=== PATIENT | male | born 1960 | race Caucasian/White ===

== ENCOUNTER 2018-12-10 14:29 | Inpatient (IN) ==
[2018-12-12] MEDS ORDERED: BENZTROPINE 2 MG/2 ML AMP IV PRN (08:35)
[2018-12-12] MEDS ORDERED: diphenhydrAMINE CAP 25 MG CAPSULE PO PRN (08:35)
[2018-12-12] MEDS ORDERED: TEMAZEPAM 7.5 MG CAPSULE PO PRN (08:35)
[2018-12-12] MEDS ORDERED: MYLANTA/LIDO VISC 2:1 300 ML BOTTLE SWISH/SWAL PRN (08:35)
[2018-12-12] MEDS ORDERED: MYLANTA/LIDO VISC 2:1 300 ML BOTTLE SWISH/SPIT PRN (08:35)
[2018-12-12] MEDS ORDERED: ALUMINUM/MAGNES/SIMETH MAX STR 30 ML UDCUP PO PRN (08:35)
[2018-12-12] MEDS ORDERED: chlorproMAZINE 25 MG TABLET PO PRN (08:35)
[2018-12-12] MEDS ORDERED: chlorproMAZINE INJ 50 MG in SODIUM CHLORIDE 0.9% 100 ML IV PRN (08:35)
[2018-12-12] MEDS ORDERED: guaiFENesin 200 MG/10 ML UDCUP PO PRN (08:35)
[2018-12-12] MEDS ORDERED: LOPERAMIDE 2 MG CAPSULE PO PRN ×2 (08:35)
[2018-12-12] MEDS ORDERED: chlorproMAZINE INJ 25 MG in SODIUM CHLORIDE 0.9% 100 ML IV PRN (08:35)
[2018-12-12] MEDS ORDERED: MAGNESIUM HYDROXIDE SUSP 30 ML UDCUP PO PRN (08:35)
[2018-12-12] MEDS ORDERED: LACTULOSE 20 GM/30 ML UDCUP PO PRN (08:35)
[2018-12-12] MEDS ORDERED: ALPRAZolam 0.25 MG TABLET PO PRN (08:35)
[2018-12-12] MEDS ORDERED: traMADol 50 MG TABLET PO PRN (08:35)
[2018-12-12] MEDS ORDERED: ACETAMINOPHEN 325 MG TABLET PO PRN (08:35)
[2018-12-12 08:56] LABS: Basophils # 0.1 10*3/uL (0.0-0.2); Basophils % 1.3 % (0.0-0.8); Eosinophils % 0.7 % (0.00-10.9); Hematocrit 34.3 VOL% (42.0-52.0); Hemoglobin 10.7 GM/DL (14.0-18.0); Immature Granulocytes % 3.8 %; Immature Granulocytes Absolute 0.17 #; Lymphocytes # 0.7 10*3/uL (1.4-4.0); Lymphocytes % 15.4 % (21.2-54.2); Mean Corpuscular HGB Conc 31.2 GM/DL (32-36); Mean Platelet Volume 9.2 FL (9.6-12.0); Monocytes % 14.5 % (1.7-12.7); Neutrophils % 64.3 % (38.7-73.9); Platelet Count 171 T/CUMM (130-400); Red Blood Count 3.69 MC/CUMM (3.8-5.5); Red Cell Distribution Width 17.5 % (9.3-17.3); White Blood Count 4.5 T/CUMM (4-12)
[2018-12-12 09:30] LABS: Alanine Aminotransferase 18 U/L (16-61); Albumin 3.3 G/DL (3.4-5.0); Alkaline Phosphatase 227 U/L (45-117); Aspartate Amino Transferase 19 U/L (0-37); Bilirubin,Total < 0.39 MG/DL (0.2-1.0); Blood Urea Nitrogen 12 MG/DL (7-18); Calcium 8.6 MG/DL (8.5-10.1); Estimated Glom Filtration Rate 109 ML/MIN; Glucose 112 MG/DL (74-106); Osmolality,Calculated 275.7 MOS/KG (273-304)
[2018-12-12] MEDS ORDERED: DILTIAZEM 60 MG TABLET PO SCH (09:30)
[2018-12-12 09:44] LABS: Eosinophils 2 % (0-10); Hypochromasia 1+; Lymphocytes 19 % (20-55); Platelet Estimate Adequate; Segmented Neutrophils 69 % (50-85); Total Cells Counted 100
[2018-12-12] MEDS ORDERED: DIVALPROEX ER 250 MG TABLET PO SCH (10:00)
[2018-12-12] MEDS ORDERED: DULoxetine 30 MG CAPSULE PO SCH (10:00)
[2018-12-12] MEDS: ATORVASTATIN 20 MG TABLET PO SCH (10:50)
[2018-12-12] MEDS: FLUTICASONE 50 MCG NASAL SPRAY 16 GM BOTTLE BOTH NARES SCH (11:25)
[2018-12-12] MEDS ORDERED: LORazepam 0.5 MG TABLET PO PRN (11:28)
[2018-12-12] MEDS: ONDANSETRON 4 MG/2 ML VIAL IV PRN ×2 (11:29→18:01)
[2018-12-12] MEDS ORDERED: DEXAMETHASONE 10 MG/1 ML VIAL IV ONE (11:48)
[2018-12-12] MEDS ORDERED: PALONOSETRON 0.25 MG/5 ML VIAL IV ONE (11:48)
[2018-12-12] MEDS: ALLOPURINOL 300 MG TABLET PO SCH (13:09)
[2018-12-12] MEDS: FOLIC ACID 0.4 MG TABLET PO SCH (13:10)
[2018-12-12] MEDS: DIVALPROEX 250 MG TABLET PO SCH ×2 (13:15→20:49)
[2018-12-12] MEDS: DULoxetine 30 MG CAPSULE PO SCH (13:15)
[2018-12-12] MEDS: DILTIAZEM 60 MG TABLET PO SCH (13:15)
[2018-12-12] MEDS ORDERED: SODIUM CHLORIDE 0.9% 500 ML IV ONE (15:00)
[2018-12-12] MEDS ORDERED: METHOTREXATE IV ONE ×2 (15:00→16:00)
[2018-12-12] MEDS ORDERED: SODIUM CHLORIDE 0.9% IV ONE (16:00)
[2018-12-12] MEDS: SODIUM CHLORIDE 0.45% 1,000 ML IV SCH (16:03)
[2018-12-12] MEDS ORDERED: GABAPENTIN 400 MG CAPSULE PO SCH ×2 (17:00→21:00)
[2018-12-12] MEDS: GABAPENTIN 400 MG CAPSULE PO SCH ×2 (18:04→20:49)
[2018-12-12] MEDS: PROMETHAZINE INJ 25 MG in SODIUM CHLORIDE 0.9% 50 ML IV PRN (19:25)
[2018-12-12 19:38] LABS: Apearance,Urine CLEAR (Clear); Bilirubin,Urine Negative (Negative); Blood, Urine Negative (Negative); Glucose,Urine (UA) Negative (Negative); Ketones,Urine Negative (Negative); Mucus,Urine Occasional /LPF (Occasional); Nitrite,Urine Negative (Negative); Protein,Urine Negative; RBC,Urine 1 /HPF (0-4); Urine Color Straw (Yellow); Urine Specific Gravity 1.008 (1.001-1.035); Urine Urobilinogen < 2.0 EU/DL (0.2-1.0)
[2018-12-12] MEDS: traZODone 50 MG TABLET PO SCH (20:49)
[2018-12-12] MEDS: MIRTAZAPINE 30 MG TABLET PO SCH (20:50)
[2018-12-12] MEDS ORDERED: MIRTAZAPINE 30 MG TABLET PO SCH (21:00)
[2018-12-12] MEDS ORDERED: traZODone 50 MG TABLET PO SCH (21:00)
[2018-12-13] MEDS: SODIUM CHLORIDE 0.45% 1,000 ML IV SCH ×3 (01:55→23:33)
[2018-12-13] MEDS: ONDANSETRON 4 MG/2 ML VIAL IV PRN ×2 (02:15→12:05)
[2018-12-13] MEDS ORDERED: LEVOTHYROXINE 25 MCG TABLET PO SCH (06:30)
[2018-12-13] MEDS: PROMETHAZINE INJ 25 MG in SODIUM CHLORIDE 0.9% 50 ML IV PRN ×4 (08:34→21:55)
[2018-12-13] MEDS: ALLOPURINOL 300 MG TABLET PO SCH (08:42)
[2018-12-13] MEDS: ATORVASTATIN 20 MG TABLET PO SCH (08:42)
[2018-12-13] MEDS: GABAPENTIN 400 MG CAPSULE PO SCH ×3 (08:42→21:54)
[2018-12-13] MEDS: DILTIAZEM 60 MG TABLET PO SCH (08:42)
[2018-12-13] MEDS: DULoxetine 30 MG CAPSULE PO SCH (08:42)
[2018-12-13] MEDS: FOLIC ACID 0.4 MG TABLET PO SCH (08:42)
[2018-12-13] MEDS: DIVALPROEX 250 MG TABLET PO SCH ×2 (08:42→21:53)
[2018-12-13] MEDS: LEVOTHYROXINE 25 MCG TABLET PO SCH (08:42)
[2018-12-13] MEDS: FLUTICASONE 50 MCG NASAL SPRAY 16 GM BOTTLE BOTH NARES SCH (08:47)
[2018-12-13] MEDS ORDERED: [UNRECOGNIZED DRUG - REMARK] BOTH NARES SCH (09:00)
[2018-12-13] MEDS ORDERED: MORPHINE 4 MG/1 ML VIAL ONE (12:31)
[2018-12-13] MEDS: MORPHINE 4 MG/1 ML VIAL IV PRN ×3 (12:33→21:54)
[2018-12-13] MEDS: traZODone 50 MG TABLET PO SCH (21:53)
[2018-12-13] MEDS: MIRTAZAPINE 30 MG TABLET PO SCH (21:54)
[2018-12-14 03:44] LABS: Basophils % 0.2 % (0.0-0.8); Hematocrit 28.9 VOL% (42.0-52.0); Hemoglobin 8.9 GM/DL (14.0-18.0); Immature Granulocytes Absolute 0.09 #; Lymphocytes # 0.7 10*3/uL (1.4-4.0); Lymphocytes % 7.8 % (21.2-54.2); Mean Corpuscular HGB Conc 30.8 GM/DL (32-36); Mean Corpuscular Volume 94.8 FL (87-102); Mean Platelet Volume 9.6 FL (9.6-12.0); Monocytes % 5.4 % (1.7-12.7); Neutrophils % 85.6 % (38.7-73.9); Platelet Count 137 T/CUMM (130-400); Red Blood Count 3.05 MC/CUMM (3.8-5.5); Red Cell Distribution Width 17.6 % (9.3-17.3); White Blood Count 8.9 T/CUMM (4-12)
[2018-12-14 04:13] LABS: Calcium 7.5 MG/DL (8.5-10.1); Osmolality,Calculated 276.7 MOS/KG (273-304)
[2018-12-14] MEDS: PROMETHAZINE INJ 25 MG in SODIUM CHLORIDE 0.9% 50 ML IV PRN ×5 (04:30→22:38)
[2018-12-14] MEDS: MORPHINE 4 MG/1 ML VIAL IV PRN ×5 (04:31→22:39)
[2018-12-14] MEDS: GABAPENTIN 400 MG CAPSULE PO SCH ×3 (08:50→20:26)
[2018-12-14] MEDS: DULoxetine 30 MG CAPSULE PO SCH (08:50)
[2018-12-14] MEDS: ALLOPURINOL 300 MG TABLET PO SCH (08:50)
[2018-12-14] MEDS: DILTIAZEM 60 MG TABLET PO SCH (08:50)
[2018-12-14] MEDS: LEVOTHYROXINE 25 MCG TABLET PO SCH (08:51)
[2018-12-14] MEDS: FLUTICASONE 50 MCG NASAL SPRAY 16 GM BOTTLE BOTH NARES SCH (08:51)
[2018-12-14] MEDS: DIVALPROEX 250 MG TABLET PO SCH ×2 (08:51→20:27)
[2018-12-14] MEDS: ATORVASTATIN 20 MG TABLET PO SCH (08:51)
[2018-12-14] MEDS: FOLIC ACID 0.4 MG TABLET PO SCH (08:51)
[2018-12-14] MEDS ORDERED: DEXAMETHASONE 10 MG/1 ML VIAL IV ONE ×2 (09:08→09:09)
[2018-12-14] MEDS: MAGNESIUM OXIDE 400 MG TABLET PO SCH (09:48)
[2018-12-14] MEDS: SODIUM CHLORIDE 0.9% IV SCH ×3 (09:51→20:29)
[2018-12-14] MEDS: LEUCOVORIN IV SCH ×3 (09:51→20:29)
[2018-12-14] MEDS: SODIUM CHLORIDE 0.45% 1,000 ML IV SCH ×2 (10:21→21:44)
[2018-12-14] MEDS: CYTARABINE IV SCH ×2 (10:23→21:19)
[2018-12-14] MEDS: DEXTROSE 5% IV SCH ×2 (10:23→21:19)
[2018-12-14] MEDS: MIRTAZAPINE 30 MG TABLET PO SCH (20:27)
[2018-12-14] MEDS: traZODone 50 MG TABLET PO SCH (20:27)
[2018-12-15] MEDS: LEUCOVORIN IV SCH ×4 (03:08→21:02)
[2018-12-15] MEDS: SODIUM CHLORIDE 0.9% IV SCH ×6 (03:08→21:36)
[2018-12-15] MEDS: MORPHINE 4 MG/1 ML VIAL IV PRN ×4 (07:24→21:09)
[2018-12-15] MEDS: PROMETHAZINE INJ 25 MG in SODIUM CHLORIDE 0.9% 50 ML IV PRN ×4 (07:27→20:59)
[2018-12-15] MEDS: DULoxetine 30 MG CAPSULE PO SCH (08:57)
[2018-12-15] MEDS: FOLIC ACID 0.4 MG TABLET PO SCH (08:57)
[2018-12-15] MEDS: DIVALPROEX 250 MG TABLET PO SCH ×2 (08:57→20:58)
[2018-12-15] MEDS: ALLOPURINOL 300 MG TABLET PO SCH (08:57)
[2018-12-15] MEDS: DILTIAZEM 60 MG TABLET PO SCH (08:57)
[2018-12-15] MEDS: GABAPENTIN 400 MG CAPSULE PO SCH ×3 (08:57→20:58)
[2018-12-15] MEDS: MAGNESIUM OXIDE 400 MG TABLET PO SCH (08:58)
[2018-12-15] MEDS: LEVOTHYROXINE 25 MCG TABLET PO SCH (08:58)
[2018-12-15] MEDS: ATORVASTATIN 20 MG TABLET PO SCH (08:58)
[2018-12-15] MEDS: FLUTICASONE 50 MCG NASAL SPRAY 16 GM BOTTLE BOTH NARES SCH (09:00)
[2018-12-15] MEDS: CYTARABINE IV SCH ×3 (09:09→21:36)
[2018-12-15] MEDS: DEXTROSE 5% IV SCH (09:09)
[2018-12-15] MEDS: SODIUM CHLORIDE 0.45% 1,000 ML IV SCH ×2 (09:29→13:09)
[2018-12-15] MEDS: traZODone 50 MG TABLET PO SCH (20:57)
[2018-12-15] MEDS: MIRTAZAPINE 30 MG TABLET PO SCH (20:58)
[2018-12-16] MEDS: SODIUM CHLORIDE 0.45% 1,000 ML IV SCH ×2 (00:29→12:02)
[2018-12-16] MEDS: MORPHINE 4 MG/1 ML VIAL IV PRN ×4 (01:07→13:41)
[2018-12-16] MEDS: SODIUM CHLORIDE 0.9% IV SCH (02:48)
[2018-12-16] MEDS: LEUCOVORIN IV SCH (02:48)
[2018-12-16] MEDS: PROMETHAZINE INJ 25 MG in SODIUM CHLORIDE 0.9% 50 ML IV PRN ×2 (04:43→13:44)
[2018-12-16 04:52] LABS: Basophils % 0.1 % (0.0-0.8); Eosinophils % 0.1 % (0.00-10.9); Hematocrit 28.7 VOL% (42.0-52.0); Hemoglobin 9.1 GM/DL (14.0-18.0); Immature Granulocytes % 0.4 %; Immature Granulocytes Absolute 0.03 #; Lymphocytes # 0.4 10*3/uL (1.4-4.0); Lymphocytes % 5.3 % (21.2-54.2); Mean Corpuscular HGB Conc 31.7 GM/DL (32-36); Mean Corpuscular Volume 92.3 FL (87-102); Mean Platelet Volume 9.9 FL (9.6-12.0); Monocytes % 0.7 % (1.7-12.7); Neutrophils % 93.4 % (38.7-73.9); Platelet Count 115 T/CUMM (130-400); Red Blood Count 3.11 MC/CUMM (3.8-5.5); Red Cell Distribution Width 16.6 % (9.3-17.3)
[2018-12-16 05:15] LABS: Lymphocytes 1 % (20-55); Platelet Estimate Decreased; Polychromasia Few; Segmented Neutrophils 99 % (50-85); Total Cells Counted 100
[2018-12-16 05:17] LABS: Osmolality,Calculated 282.3 MOS/KG (273-304); Total Protein 5.8 G/DL (6.4-8.3)
[2018-12-16] MEDS: FLUTICASONE 50 MCG NASAL SPRAY 16 GM BOTTLE BOTH NARES SCH (08:19)
[2018-12-16] MEDS: DILTIAZEM 60 MG TABLET PO SCH (08:19)
[2018-12-16] MEDS: DIVALPROEX 250 MG TABLET PO SCH (08:19)
[2018-12-16] MEDS: FOLIC ACID 0.4 MG TABLET PO SCH (08:19)
[2018-12-16] MEDS: ALLOPURINOL 300 MG TABLET PO SCH (08:19)
[2018-12-16] MEDS: MAGNESIUM OXIDE 400 MG TABLET PO SCH (08:19)
[2018-12-16] MEDS: DULoxetine 30 MG CAPSULE PO SCH (08:19)
[2018-12-16] MEDS: LEVOTHYROXINE 25 MCG TABLET PO SCH (08:19)
[2018-12-16] MEDS: ATORVASTATIN 20 MG TABLET PO SCH (08:19)
[2018-12-16] MEDS: GABAPENTIN 400 MG CAPSULE PO SCH (08:21)
[2018-12-16 16:21] VITALS: BP 104/63
[2018-12-16] MEDS: ONDANSETRON 4 MG/2 ML VIAL IV PRN (16:47)
== END 2018-12-16 17:40 | disposition home health service (06) | DRG 839 ==
LOC: N.4E 12-12 07:33 → SUPCPDRO 12-12 07:33
PROVIDERS: ADMIT Specialist; ATTEND Specialist

== ENCOUNTER 2019-01-07 16:30 | Inpatient (IN) ==
[2019-01-08] MEDS ORDERED: guaiFENesin 200 MG/10 ML UDCUP PO PRN (07:56)
[2019-01-08] MEDS ORDERED: MYLANTA/LIDO VISC 2:1 300 ML BOTTLE SWISH/SWAL PRN (07:56)
[2019-01-08] MEDS ORDERED: chlorproMAZINE 25 MG TABLET PO PRN (07:56)
[2019-01-08] MEDS ORDERED: LOPERAMIDE 2 MG CAPSULE PO PRN ×2 (07:56)
[2019-01-08] MEDS ORDERED: MAGNESIUM HYDROXIDE SUSP 30 ML UDCUP PO PRN (07:56)
[2019-01-08] MEDS ORDERED: chlorproMAZINE INJ 25 MG in SODIUM CHLORIDE 0.9% 100 ML IV PRN (07:56)
[2019-01-08] MEDS ORDERED: ALUMINUM/MAGNES/SIMETH MAX STR 30 ML UDCUP PO PRN (07:56)
[2019-01-08] MEDS ORDERED: traMADol 50 MG TABLET PO PRN (07:56)
[2019-01-08] MEDS ORDERED: chlorproMAZINE INJ 50 MG in SODIUM CHLORIDE 0.9% 100 ML IV PRN (07:56)
[2019-01-08] MEDS ORDERED: ACETAMINOPHEN 325 MG TABLET PO PRN (07:56)
[2019-01-08] MEDS ORDERED: MYLANTA/LIDO VISC 2:1 300 ML BOTTLE SWISH/SPIT PRN (07:56)
[2019-01-08 08:24] LABS: Basophils # 0.1 10*3/uL (0.0-0.2); Basophils % 0.9 % (0.0-0.8); Eosinophils # 0.1 10*3/uL (0.0-0.87); Eosinophils % 0.9 % (0.00-10.9); Hematocrit 34.7 VOL% (42.0-52.0); Immature Granulocytes % 8.2 %; Immature Granulocytes Absolute 0.53 #; Lymphocytes # 0.9 10*3/uL (1.4-4.0); Lymphocytes % 13.2 % (21.2-54.2); Mean Corpuscular HGB Conc 31.7 GM/DL (32-36); Mean Corpuscular Volume 89.9 FL (87-102); Monocytes % 17.1 % (1.7-12.7); Neutrophils % 59.7 % (38.7-73.9); Platelet Count 305 T/CUMM (130-400); Red Blood Count 3.86 MC/CUMM (3.8-5.5); White Blood Count 6.4 T/CUMM (4-12)
[2019-01-08 08:44] LABS: Alanine Aminotransferase 24 U/L (16-61); Albumin 3.4 G/DL (3.4-5.0); Alkaline Phosphatase 208 U/L (45-117); Aspartate Amino Transferase 17 U/L (0-37); Bilirubin,Total < 0.39 MG/DL (0.2-1.0); Blood Urea Nitrogen 17 MG/DL (7-18); Calcium 8.7 MG/DL (8.5-10.1); Estimated Glom Filtration Rate 105 ML/MIN; Glucose 107 MG/DL (74-106); Osmolality,Calculated 276.7 MOS/KG (273-304); Total Protein 6.8 G/DL (6.4-8.3); Uric Acid 4.8 MG/DL (3.5-7.2)
[2019-01-08 08:54] LABS: Anisocytosis 1+; Band Neutrophils 11 % (0-10); Eosinophils 3 % (0-10); Lymphocytes 16 % (20-55); Nucleated Red Blood Cells 1 (0-5); Platelet Estimate Normal; Polychromasia Slight; Segmented Neutrophils 56 % (50-85); Total Cells Counted 100
[2019-01-08] MEDS: SODIUM CHLORIDE 0.45% 1,000 ML IV SCH (09:47)
[2019-01-08] MEDS: HYDROmorphone 2 MG/1 ML VIAL IV PRN ×2 (09:47→21:32)
[2019-01-08] MEDS: ONDANSETRON 4 MG/2 ML VIAL IV PRN ×2 (09:48→18:57)
[2019-01-08] MEDS: DEXAMETHASONE 4 MG TABLET PO SCH (12:43)
[2019-01-08] MEDS: ONDANSETRON 4 MG/2 ML VIAL IV SCH (13:16)
[2019-01-08] MEDS: CYCLOPHOSPHAMIDE IV SCH (13:17)
[2019-01-08] MEDS: SODIUM CHLORIDE 0.9% IV SCH (13:17)
[2019-01-08] MEDS: GABAPENTIN 400 MG CAPSULE PO SCH ×2 (18:56→21:27)
[2019-01-08] MEDS: MIRTAZAPINE 30 MG TABLET PO SCH (21:27)
[2019-01-08] MEDS: ALPRAZolam 0.25 MG TABLET PO PRN (21:27)
[2019-01-08] MEDS: TEMAZEPAM 7.5 MG CAPSULE PO PRN (21:27)
[2019-01-08] MEDS: traZODone 50 MG TABLET PO SCH (21:28)
[2019-01-08] MEDS: risperiDONE 0.5 MG TABLET PO SCH (21:28)
[2019-01-09] MEDS: ONDANSETRON 4 MG/2 ML VIAL IV PRN ×4 (01:21→23:30)
[2019-01-09] MEDS: CYCLOPHOSPHAMIDE IV SCH ×2 (01:27→13:52)
[2019-01-09] MEDS: SODIUM CHLORIDE 0.9% IV SCH ×2 (01:27→13:52)
[2019-01-09] MEDS: SODIUM CHLORIDE 0.45% 1,000 ML IV SCH ×2 (01:28→18:25)
[2019-01-09] MEDS: diphenhydrAMINE CAP 25 MG CAPSULE PO PRN (01:31)
[2019-01-09] MEDS: ONDANSETRON 4 MG/2 ML VIAL IV SCH ×2 (01:45→12:31)
[2019-01-09] MEDS: PROMETHAZINE 25 MG TABLET PO PRN (05:29)
[2019-01-09 06:07] LABS: Apearance,Urine CLEAR (Clear); Bilirubin,Urine Negative (Negative); Blood, Urine Negative (Negative); Glucose,Urine (UA) Negative (Negative); Ketones,Urine Negative (Negative); Mucus,Urine Occasional /LPF (Occasional); Nitrite,Urine Negative (Negative); Protein,Urine Negative; RBC,Urine 1 /HPF (0-4); Urine Color Yellow (Yellow); Urine Specific Gravity 1.015 (1.001-1.035); Urine Urobilinogen < 2.0 EU/DL (0.2-1.0)
[2019-01-09 06:53] LABS: Basophils % 0.3 % (0.0-0.8); Hematocrit 32.1 VOL% (42.0-52.0); Hemoglobin 10.4 GM/DL (14.0-18.0); Immature Granulocytes % 6.8 %; Immature Granulocytes Absolute 0.77 #; Lymphocytes # 0.6 10*3/uL (1.4-4.0); Lymphocytes % 4.9 % (21.2-54.2); Mean Corpuscular HGB Conc 32.4 GM/DL (32-36); Mean Corpuscular Volume 89.4 FL (87-102); Monocytes % 3.5 % (1.7-12.7); Neutrophils % 84.5 % (38.7-73.9); Platelet Count 292 T/CUMM (130-400); Red Blood Count 3.59 MC/CUMM (3.8-5.5); Red Cell Distribution Width 14.7 % (9.3-17.3); White Blood Count 11.3 T/CUMM (4-12)
[2019-01-09 07:43] LABS: Atypical Lymphocytes Few; Band Neutrophils 4 % (0-10); Lymphocytes 5 % (20-55); Metamyelocytes 5 %; Myelocytes 1 %; Polychromasia Slight; Segmented Neutrophils 84 % (50-85); Total Cells Counted 100
[2019-01-09 07:44] LABS: Platelet Estimate Normal
[2019-01-09] MEDS: LACTULOSE 20 GM/30 ML UDCUP PO PRN ×2 (09:34→15:19)
[2019-01-09] MEDS: HYDROmorphone 2 MG/1 ML VIAL IV PRN ×2 (09:34→21:36)
[2019-01-09] MEDS: DILTIAZEM 60 MG TABLET PO SCH (09:35)
[2019-01-09] MEDS: DEXAMETHASONE 4 MG TABLET PO SCH (09:35)
[2019-01-09] MEDS: FLUTICASONE 50 MCG NASAL SPRAY 16 GM BOTTLE BOTH NARES SCH (09:35)
[2019-01-09] MEDS: risperiDONE 0.5 MG TABLET PO SCH ×2 (09:35→21:34)
[2019-01-09] MEDS: DULoxetine 30 MG CAPSULE PO SCH (09:35)
[2019-01-09] MEDS: GABAPENTIN 400 MG CAPSULE PO SCH ×3 (09:36→21:34)
[2019-01-09] MEDS: PROMETHAZINE INJ 25 MG in SODIUM CHLORIDE 0.9% 50 ML IV PRN (13:21)
[2019-01-09] MEDS: MIRTAZAPINE 30 MG TABLET PO SCH (21:34)
[2019-01-09] MEDS: ALPRAZolam 0.25 MG TABLET PO PRN (21:34)
[2019-01-09] MEDS: traZODone 50 MG TABLET PO SCH (21:34)
[2019-01-09] MEDS: TEMAZEPAM 7.5 MG CAPSULE PO PRN (21:34)
[2019-01-10] MEDS: PROMETHAZINE INJ 25 MG in SODIUM CHLORIDE 0.9% 50 ML IV PRN ×2 (00:55→12:43)
[2019-01-10] MEDS: diphenhydrAMINE CAP 25 MG CAPSULE PO PRN (01:34)
[2019-01-10] MEDS: SODIUM CHLORIDE 0.9% IV SCH ×2 (01:36→13:25)
[2019-01-10] MEDS: CYCLOPHOSPHAMIDE IV SCH ×2 (01:36→13:25)
[2019-01-10] MEDS: ONDANSETRON 4 MG/2 ML VIAL IV SCH ×2 (04:21→13:25)
[2019-01-10] MEDS: SODIUM CHLORIDE 0.45% 1,000 ML IV SCH (04:21)
[2019-01-10] MEDS: PROMETHAZINE 25 MG TABLET PO PRN ×2 (06:09→16:08)
[2019-01-10] MEDS: DEXAMETHASONE 4 MG TABLET PO SCH (08:09)
[2019-01-10] MEDS: DULoxetine 30 MG CAPSULE PO SCH (08:09)
[2019-01-10] MEDS: risperiDONE 0.5 MG TABLET PO SCH ×2 (08:10→20:28)
[2019-01-10] MEDS: DILTIAZEM 60 MG TABLET PO SCH (08:10)
[2019-01-10] MEDS: GABAPENTIN 400 MG CAPSULE PO SCH ×3 (08:10→20:28)
[2019-01-10] MEDS: ALPRAZolam 0.25 MG TABLET PO PRN ×2 (08:11→20:37)
[2019-01-10] MEDS: FLUTICASONE 50 MCG NASAL SPRAY 16 GM BOTTLE BOTH NARES SCH (08:12)
[2019-01-10] MEDS: HYDROmorphone 2 MG/1 ML VIAL IV PRN ×2 (09:43→21:51)
[2019-01-10] MEDS: ONDANSETRON 4 MG/2 ML VIAL IV PRN ×2 (09:43→20:26)
[2019-01-10] MEDS: MIRTAZAPINE 30 MG TABLET PO SCH (20:28)
[2019-01-10] MEDS: traZODone 50 MG TABLET PO SCH (20:28)
[2019-01-11] MEDS: PROMETHAZINE INJ 25 MG in SODIUM CHLORIDE 0.9% 50 ML IV PRN (01:01)
[2019-01-11] MEDS: diphenhydrAMINE CAP 25 MG CAPSULE PO PRN (01:01)
[2019-01-11] MEDS: ONDANSETRON 4 MG/2 ML VIAL IV SCH (01:52)
[2019-01-11] MEDS: SODIUM CHLORIDE 0.9% IV SCH (02:01)
[2019-01-11] MEDS: CYCLOPHOSPHAMIDE IV SCH (02:01)
[2019-01-11] MEDS: SODIUM CHLORIDE 0.45% 1,000 ML IV SCH (03:56)
[2019-01-11] MEDS: ALPRAZolam 0.25 MG TABLET PO PRN ×3 (04:53→20:41)
[2019-01-11] MEDS: ONDANSETRON 4 MG/2 ML VIAL IV PRN ×3 (04:54→20:46)
[2019-01-11] MEDS: LACTULOSE 20 GM/30 ML UDCUP PO PRN (08:45)
[2019-01-11] MEDS: DEXAMETHASONE 4 MG TABLET PO SCH (08:47)
[2019-01-11] MEDS: GABAPENTIN 400 MG CAPSULE PO SCH ×3 (08:48→20:33)
[2019-01-11] MEDS: risperiDONE 0.5 MG TABLET PO SCH ×2 (08:48→20:41)
[2019-01-11] MEDS: DILTIAZEM 60 MG TABLET PO SCH (08:48)
[2019-01-11] MEDS: DULoxetine 30 MG CAPSULE PO SCH (08:48)
[2019-01-11] MEDS: FLUTICASONE 50 MCG NASAL SPRAY 16 GM BOTTLE BOTH NARES SCH (08:49)
[2019-01-11] MEDS: HYDROmorphone 2 MG/1 ML VIAL IV PRN ×2 (08:52→20:41)
[2019-01-11] MEDS ORDERED: vinCRIStine 2 MG in SYRINGE 1 EACH IV ONE (09:00)
[2019-01-11] MEDS: PROMETHAZINE 25 MG TABLET PO PRN (10:01)
[2019-01-11] MEDS: MIRTAZAPINE 30 MG TABLET PO SCH (20:33)
[2019-01-11] MEDS: traZODone 50 MG TABLET PO SCH (20:41)
[2019-01-12] MEDS: SODIUM CHLORIDE 0.45% 1,000 ML IV SCH (00:08)
[2019-01-12 05:43] LABS: Basophils % 0.1 % (0.0-0.8); Hematocrit 33.4 VOL% (42.0-52.0); Hemoglobin 11.2 GM/DL (14.0-18.0); Immature Granulocytes % 4.5 %; Immature Granulocytes Absolute 0.59 #; Lymphocytes # 0.4 10*3/uL (1.4-4.0); Mean Corpuscular HGB Conc 33.5 GM/DL (32-36); Mean Corpuscular Volume 87.4 FL (87-102); Mean Platelet Volume 10.4 FL (9.6-12.0); Monocytes % 4.6 % (1.7-12.7); Neutrophils % 87.8 % (38.7-73.9); Platelet Count 203 T/CUMM (130-400); Red Blood Count 3.82 MC/CUMM (3.8-5.5); Red Cell Distribution Width 14.9 % (9.3-17.3); White Blood Count 13.2 T/CUMM (4-12)
[2019-01-12 06:00] LABS: Alanine Aminotransferase 23 U/L (16-61); Albumin 3.3 G/DL (3.4-5.0); Alkaline Phosphatase 144 U/L (45-117); Aspartate Amino Transferase 16 U/L (0-37); Bilirubin,Total < 0.39 MG/DL (0.2-1.0); Blood Urea Nitrogen 17 MG/DL (7-18); Calcium 8.3 MG/DL (8.5-10.1); Estimated Glom Filtration Rate 112 ML/MIN; Glucose 129 MG/DL (74-106); Osmolality,Calculated 286.1 MOS/KG (273-304); Total Protein 6.4 G/DL (6.4-8.3)
[2019-01-12 06:08] LABS: Lymphocytes 3 % (20-55); Platelet Estimate Normal; Polychromasia Few; Segmented Neutrophils 92 % (50-85); Total Cells Counted 100
[2019-01-12 06:10] LABS: Uric Acid 3.7 MG/DL (3.5-7.2)
[2019-01-12] MEDS: DULoxetine 30 MG CAPSULE PO SCH (08:16)
[2019-01-12] MEDS: DILTIAZEM 60 MG TABLET PO SCH (08:17)
[2019-01-12] MEDS: GABAPENTIN 400 MG CAPSULE PO SCH (08:17)
[2019-01-12] MEDS: risperiDONE 0.5 MG TABLET PO SCH (08:17)
[2019-01-12] MEDS: ONDANSETRON 4 MG/2 ML VIAL IV PRN (08:17)
[2019-01-12] MEDS: ALPRAZolam 0.25 MG TABLET PO PRN (09:22)
[2019-01-12] MEDS: HYDROmorphone 2 MG/1 ML VIAL IV PRN (09:25)
[2019-01-12] MEDS: FLUTICASONE 50 MCG NASAL SPRAY 16 GM BOTTLE BOTH NARES SCH (09:25)
[2019-01-12 11:57] VITALS: BP 115/73
[2019-01-12] MEDS ORDERED: HEPARIN LOCK FLUSH 500 UNIT/5 ML SYRINGE IV ONE (12:39)
== END 2019-01-12 13:09 | disposition home health service (06) | DRG 839 ==
LOC: N.4E 01-08 06:24
PROVIDERS: ADMIT Specialist; ATTEND Specialist

== ENCOUNTER 2019-01-26 10:34 | Inpatient (IN) ==
[2019-01-26] MEDS ORDERED: chlorproMAZINE 25 MG TABLET PO PRN (12:15)
[2019-01-26] MEDS ORDERED: diphenhydrAMINE CAP 25 MG CAPSULE PO PRN (12:15)
[2019-01-26] MEDS ORDERED: LACTULOSE 20 GM/30 ML UDCUP PO PRN (12:15)
[2019-01-26] MEDS ORDERED: LOPERAMIDE 2 MG CAPSULE PO PRN ×2 (12:15)
[2019-01-26] MEDS ORDERED: guaiFENesin 200 MG/10 ML UDCUP PO PRN (12:15)
[2019-01-26] MEDS ORDERED: MAGNESIUM HYDROXIDE SUSP 30 ML UDCUP PO PRN (12:15)
[2019-01-26] MEDS ORDERED: BENZTROPINE 2 MG/2 ML AMP IV PRN (12:15)
[2019-01-26] MEDS ORDERED: chlorproMAZINE INJ 50 MG in SODIUM CHLORIDE 0.9% 100 ML IV PRN (12:15)
[2019-01-26] MEDS ORDERED: chlorproMAZINE INJ 25 MG in SODIUM CHLORIDE 0.9% 100 ML IV PRN (12:15)
[2019-01-26] MEDS ORDERED: TEMAZEPAM 7.5 MG CAPSULE PO PRN (12:15)
[2019-01-26] MEDS ORDERED: MYLANTA/LIDO VISC 2:1 300 ML BOTTLE SWISH/SWAL PRN (12:15)
[2019-01-26] MEDS ORDERED: ALUMINUM/MAGNES/SIMETH MAX STR 30 ML UDCUP PO PRN (12:15)
[2019-01-26] MEDS ORDERED: MYLANTA/LIDO VISC 2:1 300 ML BOTTLE SWISH/SPIT PRN (12:15)
[2019-01-26] MEDS ORDERED: traMADol 50 MG TABLET PO PRN (12:15)
[2019-01-26] MEDS ORDERED: ACETAMINOPHEN 325 MG TABLET PO PRN (12:15)
[2019-01-26 13:16] LABS: Basophils % 0.1 % (0.0-0.8); Eosinophils # 0.2 10*3/uL (0.0-0.87); Eosinophils % 2.4 % (0.00-10.9); Hematocrit 36.9 VOL% (42.0-52.0); Hemoglobin 12.2 GM/DL (14.0-18.0); Immature Granulocytes % 28.6 %; Immature Granulocytes Absolute 2.38 #; Lymphocytes # 0.8 10*3/uL (1.4-4.0); Lymphocytes % 9.9 % (21.2-54.2); Mean Corpuscular HGB Conc 33.1 GM/DL (32-36); Mean Corpuscular Volume 88.9 FL (87-102); Mean Platelet Volume 11.4 FL (9.6-12.0); Monocytes % 9.5 % (1.7-12.7); NRBC # 0.04 10*3/uL; Neutrophils % 49.5 % (38.7-73.9); Platelet Count 182 T/CUMM (130-400); Red Blood Count 4.15 MC/CUMM (3.8-5.5); Red Cell Distribution Width 17.4 % (9.3-17.3); White Blood Count 8.3 T/CUMM (4-12)
[2019-01-26 13:47] LABS: Albumin 3.2 G/DL (3.4-5.0); Bilirubin,Total 0.4 MG/DL (0.2-1.0); Calcium 8.3 MG/DL (8.5-10.1); Osmolality,Calculated 277.7 MOS/KG (273-304)
[2019-01-26 13:54] LABS: Uric Acid 3.2 MG/DL (3.5-7.2)
[2019-01-26] MEDS: HYDROmorphone 2 MG/1 ML VIAL IV PRN (14:15)
[2019-01-26] MEDS: ONDANSETRON 4 MG/2 ML VIAL IV PRN (14:16)
[2019-01-26 14:47] LABS: Band Neutrophils 8 % (0-10); Eosinophils 1 % (0-10); Lymphocytes 6 % (20-55); Metamyelocytes 11 %; Myelocytes 16 %; Segmented Neutrophils 51 % (50-85); Total Cells Counted 100
[2019-01-26 14:49] LABS: Platelet Estimate Normal; Polychromasia 1+
[2019-01-26] MEDS ORDERED: DEXAMETHASONE 10 MG/1 ML VIAL IV ONE (16:30)
[2019-01-26] MEDS ORDERED: SODIUM CHLORIDE 0.9% 1,000 ML IV ONE (16:30)
[2019-01-26] MEDS ORDERED: HydrOXYzine PAMOATE 25 MG CAPSULE PO PRN (16:48)
[2019-01-26] MEDS ORDERED: METHOTREXATE IV ONE ×2 (17:00→17:30)
[2019-01-26] MEDS: GABAPENTIN 400 MG CAPSULE PO SCH ×2 (17:03→20:18)
[2019-01-26] MEDS ORDERED: SODIUM CHLORIDE 0.9% IV ONE (17:30)
[2019-01-26] MEDS: SODIUM CHLORIDE 0.45% 1,000 ML IV SCH (17:43)
[2019-01-26] MEDS: ALPRAZolam 0.25 MG TABLET PO PRN (17:48)
[2019-01-26 19:11] LABS: Apearance,Urine CLEAR (Clear); Bilirubin,Urine Negative (Negative); Blood, Urine Negative (Negative); Glucose,Urine (UA) Negative (Negative); Ketones,Urine Negative (Negative); Mucus,Urine Occasional /LPF (Occasional); Nitrite,Urine Negative (Negative); Protein,Urine Negative; RBC,Urine 2 /HPF (0-4); Urine Color Yellow (Yellow); Urine Specific Gravity 1.017 (1.001-1.035); Urine Urobilinogen < 2.0 EU/DL (0.2-1.0); WBC,Urine 1 /HPF (0-6)
[2019-01-26] MEDS: risperiDONE 0.5 MG TABLET PO SCH (20:18)
[2019-01-26] MEDS: MIRTAZAPINE 30 MG TABLET PO SCH (20:18)
[2019-01-26] MEDS: BENZONATATE 100 MG CAPSULE PO SCH (20:18)
[2019-01-26] MEDS: traZODone 50 MG TABLET PO SCH (20:18)
[2019-01-26] MEDS: PROMETHAZINE INJ 25 MG in SODIUM CHLORIDE 0.9% 50 ML IV PRN (20:27)
[2019-01-26] MEDS ORDERED: HYDROmorphone 2 MG/1 ML VIAL IV ONE (23:01)
[2019-01-27] MEDS: SODIUM CHLORIDE 0.45% 1,000 ML IV SCH ×2 (04:40→15:05)
[2019-01-27] MEDS: PROMETHAZINE INJ 25 MG in SODIUM CHLORIDE 0.9% 50 ML IV PRN ×2 (04:43→20:45)
[2019-01-27] MEDS: HYDROmorphone 2 MG/1 ML VIAL IV PRN ×2 (04:45→17:13)
[2019-01-27] MEDS: LEVOTHYROXINE 25 MCG TABLET PO SCH (07:15)
[2019-01-27] MEDS: ALPRAZolam 0.25 MG TABLET PO PRN ×3 (08:16→21:59)
[2019-01-27] MEDS: DULoxetine 30 MG CAPSULE PO SCH (08:17)
[2019-01-27] MEDS: BENZONATATE 100 MG CAPSULE PO SCH ×3 (08:17→20:47)
[2019-01-27] MEDS: DILTIAZEM 60 MG TABLET PO SCH (08:17)
[2019-01-27] MEDS: GABAPENTIN 400 MG CAPSULE PO SCH ×3 (08:19→20:47)
[2019-01-27] MEDS: risperiDONE 0.5 MG TABLET PO SCH ×2 (08:19→20:47)
[2019-01-27] MEDS: PANTOPRAZOLE 20 MG TABLET PO SCH (08:19)
[2019-01-27] MEDS: FLUTICASONE 50 MCG NASAL SPRAY 16 GM BOTTLE BOTH NARES SCH (08:20)
[2019-01-27] MEDS: ONDANSETRON 4 MG/2 ML VIAL IV PRN ×2 (11:15→17:12)
[2019-01-27] MEDS: SODIUM CHLORIDE 0.9% IV SCH (17:14)
[2019-01-27] MEDS: CYTARABINE IV SCH (17:14)
[2019-01-27] MEDS: traZODone 50 MG TABLET PO SCH (20:46)
[2019-01-27] MEDS: MIRTAZAPINE 30 MG TABLET PO SCH (20:47)
[2019-01-28] MEDS: SODIUM CHLORIDE 0.45% 1,000 ML IV SCH ×2 (01:05→09:41)
[2019-01-28] MEDS: PROMETHAZINE INJ 25 MG in SODIUM CHLORIDE 0.9% 50 ML IV PRN (05:28)
[2019-01-28] MEDS: HYDROmorphone 2 MG/1 ML VIAL IV PRN ×2 (05:29→17:33)
[2019-01-28] MEDS: LEVOTHYROXINE 25 MCG TABLET PO SCH (05:34)
[2019-01-28] MEDS: CYTARABINE IV SCH ×2 (08:34→19:42)
[2019-01-28] MEDS: SODIUM CHLORIDE 0.9% IV SCH ×4 (08:34→19:42)
[2019-01-28] MEDS: GABAPENTIN 400 MG CAPSULE PO SCH ×3 (09:40→21:37)
[2019-01-28] MEDS: ALPRAZolam 0.25 MG TABLET PO PRN ×2 (09:40→17:33)
[2019-01-28] MEDS: PANTOPRAZOLE 20 MG TABLET PO SCH (09:40)
[2019-01-28] MEDS: BENZONATATE 100 MG CAPSULE PO SCH ×3 (09:40→21:38)
[2019-01-28] MEDS: DILTIAZEM 60 MG TABLET PO SCH (09:40)
[2019-01-28] MEDS: DULoxetine 30 MG CAPSULE PO SCH (09:40)
[2019-01-28] MEDS: risperiDONE 0.5 MG TABLET PO SCH ×2 (09:41→21:37)
[2019-01-28] MEDS: ONDANSETRON 4 MG/2 ML VIAL IV PRN ×2 (09:41→17:31)
[2019-01-28] MEDS: FLUTICASONE 50 MCG NASAL SPRAY 16 GM BOTTLE BOTH NARES SCH (09:41)
[2019-01-28] MEDS: PROMETHAZINE 25 MG TABLET PO PRN ×2 (11:25→15:36)
[2019-01-28] MEDS: LEUCOVORIN IV SCH ×2 (11:28→17:31)
[2019-01-28] MEDS: MIRTAZAPINE 30 MG TABLET PO SCH (21:37)
[2019-01-28] MEDS: traZODone 50 MG TABLET PO SCH (21:37)
[2019-01-29] MEDS: SODIUM CHLORIDE 0.9% IV SCH ×6 (00:19→20:12)
[2019-01-29] MEDS: LEUCOVORIN IV SCH ×4 (00:19→18:24)
[2019-01-29] MEDS: ONDANSETRON 4 MG/2 ML VIAL IV PRN ×3 (04:31→18:23)
[2019-01-29 05:19] LABS: Basophils % 0.2 % (0.0-0.8); Eosinophils # 0.1 10*3/uL (0.0-0.87); Eosinophils % 2.7 % (0.00-10.9); Hematocrit 32.4 VOL% (42.0-52.0); Hemoglobin 10.1 GM/DL (14.0-18.0); Immature Granulocytes Absolute 0.05 #; Lymphocytes # 0.3 10*3/uL (1.4-4.0); Lymphocytes % 6.4 % (21.2-54.2); Mean Corpuscular HGB Conc 31.2 GM/DL (32-36); Mean Corpuscular Volume 93.6 FL (87-102); Monocytes % 2.3 % (1.7-12.7); Neutrophils % 87.4 % (38.7-73.9); Platelet Count 144 T/CUMM (130-400); Red Blood Count 3.46 MC/CUMM (3.8-5.5); Red Cell Distribution Width 18.1 % (9.3-17.3); White Blood Count 4.9 T/CUMM (4-12)
[2019-01-29 05:34] LABS: Albumin 2.9 G/DL (3.4-5.0); Bilirubin,Total 0.6 MG/DL (0.2-1.0); Calcium 8.2 MG/DL (8.5-10.1); Osmolality,Calculated 283.3 MOS/KG (273-304); Total Protein 5.2 G/DL (6.4-8.3)
[2019-01-29] MEDS: LEVOTHYROXINE 25 MCG TABLET PO SCH (05:56)
[2019-01-29] MEDS: HYDROmorphone 2 MG/1 ML VIAL IV PRN ×2 (06:03→18:23)
[2019-01-29] MEDS: FLUTICASONE 50 MCG NASAL SPRAY 16 GM BOTTLE BOTH NARES SCH (09:26)
[2019-01-29] MEDS: PROMETHAZINE 25 MG TABLET PO PRN ×3 (09:26→20:17)
[2019-01-29] MEDS: DILTIAZEM 60 MG TABLET PO SCH (09:26)
[2019-01-29] MEDS: BENZONATATE 100 MG CAPSULE PO SCH ×3 (09:26→20:58)
[2019-01-29] MEDS: GABAPENTIN 400 MG CAPSULE PO SCH ×3 (09:27→20:58)
[2019-01-29] MEDS: CYTARABINE IV SCH ×2 (09:27→20:12)
[2019-01-29] MEDS: PANTOPRAZOLE 20 MG TABLET PO SCH (09:27)
[2019-01-29] MEDS: risperiDONE 0.5 MG TABLET PO SCH ×2 (09:27→20:59)
[2019-01-29] MEDS: ALPRAZolam 0.25 MG TABLET PO PRN ×3 (09:27→20:17)
[2019-01-29] MEDS: DULoxetine 30 MG CAPSULE PO SCH (09:27)
[2019-01-29] MEDS: SODIUM CHLORIDE 0.45% 1,000 ML IV SCH ×2 (09:34)
[2019-01-29] MEDS: traZODone 50 MG TABLET PO SCH (20:59)
[2019-01-29] MEDS: MIRTAZAPINE 30 MG TABLET PO SCH (20:59)
[2019-01-30] MEDS: SODIUM CHLORIDE 0.9% IV SCH ×3 (00:42→08:35)
[2019-01-30] MEDS: LEUCOVORIN IV SCH ×2 (00:42→05:21)
[2019-01-30] MEDS: ONDANSETRON 4 MG/2 ML VIAL IV PRN (00:43)
[2019-01-30] MEDS: SODIUM CHLORIDE 0.45% 1,000 ML IV SCH ×2 (05:19→07:48)
[2019-01-30] MEDS: LEVOTHYROXINE 25 MCG TABLET PO SCH (05:37)
[2019-01-30] MEDS: PROMETHAZINE 25 MG TABLET PO PRN (07:08)
[2019-01-30] MEDS: ALPRAZolam 0.25 MG TABLET PO PRN (07:08)
[2019-01-30] MEDS: HYDROmorphone 2 MG/1 ML VIAL IV PRN (07:09)
[2019-01-30] MEDS: CYTARABINE IV SCH (08:35)
[2019-01-30] MEDS: DILTIAZEM 60 MG TABLET PO SCH (08:36)
[2019-01-30] MEDS: risperiDONE 0.5 MG TABLET PO SCH (08:36)
[2019-01-30] MEDS: GABAPENTIN 400 MG CAPSULE PO SCH (08:36)
[2019-01-30] MEDS: PANTOPRAZOLE 20 MG TABLET PO SCH (08:36)
[2019-01-30] MEDS: DULoxetine 30 MG CAPSULE PO SCH (08:36)
[2019-01-30] MEDS: BENZONATATE 100 MG CAPSULE PO SCH (08:36)
[2019-01-30] MEDS: FLUTICASONE 50 MCG NASAL SPRAY 16 GM BOTTLE BOTH NARES SCH (08:37)
[2019-01-30 09:48] VITALS: BP 116/75
== END 2019-01-30 11:34 | disposition home health service (06) | DRG 839 ==
LOC: N.4E 10:34 → INTOOBSV 10:34
PROVIDERS: ADMIT Specialist; ATTEND Specialist